=== PATIENT | male | born 1945 | race Caucasian/White ===

== ENCOUNTER 2021-12-05 02:06 | Observation (INO) ==
[2021-12-05] MEDS ORDERED: Albuterol/Ipratropium NEB.SOL (2.5/0.5 MG) 3 ML NEB.SOLN INH ONE (02:33)
[2021-12-05] MEDS ORDERED: Furosemide 40 mg/4 ml IV VIAL ONE (02:43)
[2021-12-05 02:45] LABS: ABS Eosinophils 0.1 10^3/ul (0-0.6); ABS Lymphocytes 0.8 10^3/ul (1.0-4.8); ABS Neutrophils 5.2 10^3/ul (1.5-7.7); Eosinophil % 1.5 %; Hematocrit 45 % (42-52); Hemoglobin 14.1 g/dL (14.0-18.0); Lymphocyte % 11.5 %; Mean Corpuscular HGB Conc 32 g/dL (31-36); Mean Corpuscular Hemoglobin 30 pg (27-31); Mean Corpuscular Volume 94 fL (80-94); Mean Platelet Volume 8.4 fL (7.4-10.4); Nucleated Red Blood Cells % 0.1; Platelet Count 190 10^3/uL (150-450); Red Blood Count 4.75 10^6 /uL (4.18-5.48); Red Cell Distribution Width 17 % (10-15); White Blood Count 7.2 10^3/uL (3.5-10.8)
[2021-12-05] MEDS ORDERED: Furosemide 40 mg/4 ml IV VIAL IV ONE ×2 (02:45→16:49)
[2021-12-05 02:50] LABS: INR 1.14 (0.89-1.11)
[2021-12-05] MEDS ORDERED: Morphine 4 MG/ML VIAL (1 ml) IV ONE (03:16)
[2021-12-05 03:22] LABS: Urine Appearance Clear; Urine Bilirubin Negative (Negative); Urine Blood Negative (Negative); Urine Color Yellow; Urine Glucose Negative (Negative); Urine Ketones Trace (Negative); Urine Nitrite Negative (Negative); Urine Protein 2+ (100 mg/dL) (Negative); Urine Specific Gravity 1.025 (1.005-1.030); Urine Urobilinogen 0.2 (Negative) (Negative)
[2021-12-05 03:24] LABS: Albumin 4.2 g/dL (3.2-5.2); Albumin/Globulin Ratio 1.3 (1-3); Calcium 9.5 mg/dL (8.6-10.3); Globulin 3.3 g/dL (2-4); Potassium 3.7 mmol/L (3.5-5.0); Total Bilirubin 1.3 mg/dL (0.2-1.0); Total Protein 7.5 g/dL (6.4-8.9); eGFR CKD-EPI 93.9 (>60)
[2021-12-05 03:32] LABS: Urine Bacteria Absent (Absent); Urine Red Blood Cell Absent (Absent); Urine Squamous Epithelial Cell Present (Absent); Urine White Blood Cell Trace(0-5/hpf) (Absent)
[2021-12-05 04:45] LABS: High Sensitivity Troponin 1 Hr 36 pg/mL (<20)
[2021-12-05] MEDS ORDERED: Iodixanol (CONTRAST) 320 MG/ML 100 ML SDV IV ONE (05:35)
[2021-12-05] MEDS ORDERED: Enoxaparin 40 MG/0.4 ML SYR SUBCUT SCH (06:00)
[2021-12-05] MEDS ORDERED: Dextrose 50% Syringe 50 ml 25 GM/50 ML SYRINGE IV PUSH PRN (06:52)
[2021-12-05] MEDS: Nystatin TOP POWDER 15 GM BTL TOPICAL SCH ×2 (09:08→21:08)
[2021-12-05] MEDS: Enoxaparin 100 MG/ML SYR SUBCUT SCH ×2 (09:08→21:08)
[2021-12-05] MEDS: Morphine ORAL.SOLN 10 mg 2 mg/ml UDC 5 ml (10 mg) PO PRN ×3 (10:31→23:13)
[2021-12-05] MEDS ORDERED: Perflutren Lipid Microsphere 3 ML VIAL ONE (15:52)
[2021-12-05] MEDS: Furosemide 40 mg/4 ml IV VIAL IV SLOW PU SCH (21:08)
[2021-12-06] MEDS: Morphine 10 MG/ML VIAL (1 ml) IV PRN ×4 (00:29→17:44)
[2021-12-06] MEDS: Morphine ORAL.SOLN 10 mg 2 mg/ml UDC 5 ml (10 mg) PO PRN ×3 (05:46→23:41)
[2021-12-06 06:20] LABS: Magnesium 1.2 mg/dL (1.9-2.7); Potassium 3.2 mmol/L (3.5-5.0)
[2021-12-06] MEDS ORDERED: Magnesium Sulf 4 GM/100 ML IV 4,000 MG/100 ML BAG IVPB ONE (07:51)
[2021-12-06] MEDS ORDERED: Potassium Chlor 20 meq TAB.ER PO ONE (07:53)
[2021-12-06] MEDS: Enoxaparin 100 MG/ML SYR SUBCUT SCH ×2 (09:39→19:52)
[2021-12-06] MEDS: Furosemide 40 mg/4 ml IV VIAL IV SLOW PU SCH ×2 (12:46→19:53)
[2021-12-06] MEDS: Nystatin TOP POWDER 15 GM BTL TOPICAL SCH (14:46)
[2021-12-07] MEDS: Nystatin TOP POWDER 15 GM BTL TOPICAL SCH ×3 (00:53→20:51)
[2021-12-07] MEDS: Morphine ORAL.SOLN 10 mg 2 mg/ml UDC 5 ml (10 mg) PO PRN ×3 (05:42→18:09)
[2021-12-07 06:26] LABS: Calcium 8.9 mg/dL (8.6-10.3); Magnesium 1.9 mg/dL (1.9-2.7); eGFR CKD-EPI 89.9 (>60)
[2021-12-07] MEDS: Enoxaparin 100 MG/ML SYR SUBCUT SCH (09:27)
[2021-12-08] MEDS: Morphine ORAL.SOLN 10 mg 2 mg/ml UDC 5 ml (10 mg) PO PRN ×2 (00:04→08:42)
[2021-12-08 07:25] LABS: Magnesium 1.7 mg/dL (1.9-2.7); eGFR CKD-EPI 87.4 (>60)
[2021-12-08 08:25] VITALS: BP 124/89
[2021-12-08] MEDS ORDERED: Magnesium Sulfate 2 gm BAG 2 GM/50 ML BAG IVPB ONE (08:37)
[2021-12-08] MEDS: Nystatin TOP POWDER 15 GM BTL TOPICAL SCH (08:45)
[2021-12-08 11:09] LABS: Lactate Dehydrogenase, BF 57 U/L
[2021-12-08 12:07] LABS: Glucose, BF 153 mg/dL
[2021-12-08 12:10] LABS: Fluid Type, Protein, Total PLEURAL; Total Protein, BF 2.1 g/dL
== END 2021-12-08 12:50 | disposition home or self-care (01) ==
LOC: EDHOLD 02:06 → ED 02:06 → SUATTDRO 06:50 → EDHOLD 13:04 → MEDTELE 13:26
PROVIDERS: ADMIT Hospitalist; ATTEND Internal Medicine

== ENCOUNTER 2022-01-06 02:28 | Observation (INO) ==
[2022-01-06 03:00] LABS: ABS Eosinophils 0.1 10^3/ul (0-0.6); ABS Lymphocytes 0.7 10^3/ul (1.0-4.8); ABS Monocytes 0.6 10^3/ul (0-0.8); ABS Neutrophils 7.1 10^3/ul (1.5-7.7); Eosinophil % 0.9 %; Hematocrit 43 % (42-52); Hemoglobin 13.9 g/dL (14.0-18.0); Lymphocyte % 8.6 %; Mean Corpuscular HGB Conc 33 g/dL (31-36); Mean Corpuscular Hemoglobin 31 pg (27-31); Mean Corpuscular Volume 94 fL (80-94); Mean Platelet Volume 8.7 fL (7.4-10.4); Platelet Count 142 10^3/uL (150-450); Red Blood Count 4.53 10^6 /uL (4.18-5.48); Red Cell Distribution Width 15 % (10-15); White Blood Count 8.5 10^3/uL (3.5-10.8)
[2022-01-06] MEDS ORDERED: Morphine 4 MG/ML VIAL (1 ml) IV ONE (03:16)
[2022-01-06 03:29] LABS: Albumin 4.2 g/dL (3.2-5.2); Albumin/Globulin Ratio 1.2 (1-3); Calcium 9.3 mg/dL (8.6-10.3); Globulin 3.5 g/dL (2-4); Potassium 3.3 mmol/L (3.5-5.0); Total Bilirubin 0.7 mg/dL (0.2-1.0); Total Protein 7.7 g/dL (6.4-8.9); eGFR CKD-EPI 73.5 (>60)
[2022-01-06] MEDS ORDERED: Potassium Chlor 20 meq TAB.ER PO ONE (05:16)
[2022-01-06 05:51] LABS: Magnesium 1.4 mg/dL (1.9-2.7)
[2022-01-06] MEDS ORDERED: Magnesium Sulfate IV 3 GM in NS 0.9% 100 ml BAG 100 ML IVPB ONE (06:07)
[2022-01-06] MEDS ORDERED: Dextrose 50% Syringe 50 ml 25 GM/50 ML SYRINGE IV PUSH PRN (06:26)
[2022-01-06 06:51] LABS: Urine Appearance Cloudy; Urine Bacteria Absent (Absent); Urine Bilirubin Negative (Negative); Urine Blood 2+ (Negative); Urine Color Yellow; Urine Glucose 3+(>=500 mg/dL) (Negative); Urine Ketones Negative (Negative); Urine Nitrite Negative (Negative); Urine Protein 1+(30 mg/dL) (Negative); Urine Red Blood Cell 3+(>10/hpf) (Absent); Urine Specific Gravity 1.024 (1.002-1.030); Urine Squamous Epithelial Cell Present (Absent); Urine Urobilinogen Negative (Negative); Urine White Blood Cell 3+(>20/hpf) (Absent)
[2022-01-06] MEDS: Morphine ORAL.SOLN 10 mg 2 mg/ml UDC 5 ml (10 mg) PO PRN ×3 (07:56→20:51)
[2022-01-06] MEDS: Meloxicam 7.5 mg TAB (NF) PO SCH ×2 (08:37→21:00)
[2022-01-07] MEDS: Morphine ORAL.SOLN 10 mg 2 mg/ml UDC 5 ml (10 mg) PO PRN ×3 (04:26→16:55)
[2022-01-07 06:16] LABS: ABS Lymphocytes 0.7 10^3/ul (1.0-4.8); ABS Monocytes 0.9 10^3/ul (0-0.8); ABS Neutrophils 9.6 10^3/ul (1.5-7.7); Eosinophil % 0.4 %; Hematocrit 37 % (42-52); Hemoglobin 11.9 g/dL (14.0-18.0); Lymphocyte % 6.1 %; Mean Corpuscular HGB Conc 33 g/dL (31-36); Mean Corpuscular Hemoglobin 31 pg (27-31); Mean Corpuscular Volume 95 fL (80-94); Mean Platelet Volume 8.8 fL (7.4-10.4); Nucleated Red Blood Cells % 0.1; Platelet Count 105 10^3/uL (150-450); Red Blood Count 3.88 10^6 /uL (4.18-5.48); Red Cell Distribution Width 15 % (10-15); White Blood Count 11.3 10^3/uL (3.5-10.8)
[2022-01-07 06:55] LABS: Albumin 3.3 g/dL (3.2-5.2); Albumin/Globulin Ratio 1.2 (1-3); Calcium 8.5 mg/dL (8.6-10.3); Globulin 2.7 g/dL (2-4); Magnesium 1.8 mg/dL (1.9-2.7); Potassium 3.8 mmol/L (3.5-5.0); Total Bilirubin 1.4 mg/dL (0.2-1.0); eGFR CKD-EPI 88.9 (>60)
[2022-01-07] MEDS ORDERED: Magnesium Sulfate 2 gm BAG 2 GM/50 ML BAG IVPB ONE (07:46)
[2022-01-07] MEDS: Meloxicam 7.5 mg TAB (NF) PO SCH ×2 (08:42→21:45)
[2022-01-07] MEDS ORDERED: cefTRIAXone 1 gm/50 mL D5W 1 GM/50 ML BAG IV SCH (20:00)
[2022-01-07 20:35] LABS: C Reactive Protein 158.65 mg/L (<8.01)
[2022-01-08] MEDS: Morphine ORAL.SOLN 10 mg 2 mg/ml UDC 5 ml (10 mg) PO PRN ×3 (00:26→14:02)
[2022-01-08 05:21] LABS: ABS Eosinophils 0.1 10^3/ul (0-0.6); ABS Lymphocytes 0.8 10^3/ul (1.0-4.8); ABS Neutrophils 7.1 10^3/ul (1.5-7.7); Eosinophil % 0.9 %; Hematocrit 37 % (42-52); Mean Corpuscular HGB Conc 33 g/dL (31-36); Mean Corpuscular Hemoglobin 31 pg (27-31); Mean Corpuscular Volume 94 fL (80-94); Mean Platelet Volume 9.2 fL (7.4-10.4); Platelet Count 100 10^3/uL (150-450); Red Blood Count 3.92 10^6 /uL (4.18-5.48); Red Cell Distribution Width 15 % (10-15)
[2022-01-08 05:22] LABS: Albumin 3.1 g/dL (3.2-5.2); Calcium 8.4 mg/dL (8.6-10.3); Magnesium 2.2 mg/dL (1.9-2.7); Potassium 3.7 mmol/L (3.5-5.0)
[2022-01-08 05:28] LABS: Albumin/Globulin Ratio 1.1 (1-3); Globulin 2.7 g/dL (2-4); Total Protein 5.8 g/dL (6.4-8.9); eGFR CKD-EPI 87.7 (>60)
[2022-01-08 08:26] LABS: C Reactive Protein 193.06 mg/L (<8.01)
[2022-01-08] MEDS: Meloxicam 7.5 mg TAB (NF) PO SCH (09:42)
[2022-01-08 13:06] VITALS: BP 113/82
== END 2022-01-08 13:45 ==
LOC: EDHOLD 02:28 → ED 02:28 → SUATTDRO 05:43 → MEDTELE 13:27
PROVIDERS: ADMIT Internal Medicine; ATTEND Hospitalist

== ENCOUNTER 2022-10-07 23:10 | Observation (INO) ==
[2022-10-07 23:51] LABS: Rapid Strep Molecular Negative (Negative)
[2022-10-08] MEDS ORDERED: Fluconazole 200 MG IVPREMIX 200 MG/100 ML BAG IVPB ONE ×2 (01:58→08:30)
[2022-10-08] MEDS ORDERED: Morphine 4 MG/ML VIAL (1 ml) IV ONE ×2 (02:36→07:14)
[2022-10-08 03:04] LABS: ABS Basophils 0.1 10^3/uL (0.0-0.1); ABS Eosinophils 0.1 10^3/uL (0.0-0.5); ABS Monocytes 1.3 10^3/uL (0.0-1.1); ABS Neutrophils 9.4 10^3/uL (1.5-7.6); ABS Nucleated RBC 0.01 10^3/ul; Eosinophil % 0.9 %; Hemoglobin 14.9 g/dL (13.2-16.3); Lymphocyte % 8.1 %; Mean Corpuscular Hemoglobin 32.7 pg (27-33); Mean Corpuscular Hgb Conc 33.9 g/dL (31-36); Mean Corpuscular Volume 96.4 fL (80-97); Mean Platelet Volume 8.2 fL (7.5-11.2); Nucleated Red Blood Cells % 0.1 /100 WBC (0.0-0.4); Platelet Count 145 10^3/uL (150-450); Red Blood Count 4.57 10^6/uL (4.06-5.63); Red Cell Distribution Width 13.4 % (12-17); White Blood Count 11.8 10^3/uL (3.6-10.2)
[2022-10-08 03:23] LABS: Albumin 3.8 g/dL (3.2-5.2); Albumin/Globulin Ratio 1.3 (1-3); Calcium 9.2 mg/dL (8.6-10.3); Creatinine, Serum 0.68 mg/dL (0.67-1.17); Globulin 2.9 g/dL (2-4); Potassium 3.3 mmol/L (3.5-5.0); Total Bilirubin 0.9 mg/dL (0.2-1.0); Total Protein 6.7 g/dL (6.4-8.9); eGFR CKD-EPI 94.6 (>60)
[2022-10-08] MEDS ORDERED: Iodixanol (CONTRAST) 320 MG/ML 100 ML SDV IV ONE (03:43)
[2022-10-08] MEDS ORDERED: Lactated Ringers 1000 ml BAG 1,000 ML IV ONE (07:14)
[2022-10-08] MEDS ORDERED: Al Hydrox/Mg Hydrox/Simet LIQ 30 ML UDC PO PRN (07:39)
[2022-10-08] MEDS ORDERED: Polyethylene Glycol 3350 17 GM PACKET PO PRN (07:39)
[2022-10-08] MEDS: KCL 20 MEQ/100 ML IVPREMIX 20 MEQ/100 ML BAG IV SCH ×2 (10:59→15:09)
[2022-10-08] MEDS ORDERED: Naloxone Nasal Spray 4 MG/0.1 ML NASAL.SPR INTRANASAL PRN (12:34)
[2022-10-08] MEDS: Morphine 10 MG/ML VIAL (1 ml) IV PRN ×2 (14:11→20:12)
[2022-10-08] MEDS ORDERED: Dextrose 50% Syringe 50 ml 25 GM/50 ML SYRINGE IV PUSH PRN (15:39)
[2022-10-08] MEDS ORDERED: Lidocaine 2% PF 5 ML VIAL ONE (16:23)
[2022-10-08] MEDS ORDERED: fentaNYL 100 mcg/2 ml 50 MCG/ML VIAL ONE (16:24)
[2022-10-08] MEDS ORDERED: HYDROmorphone 0.5 MG/0.5 ML SYRINGE ONE (17:15)
[2022-10-08] MEDS ORDERED: hydrALAZINE 20 mg/ml 1 ML Vial IV IV SLOW PU PRN (18:35)
[2022-10-08] MEDS: Nystatin SUSPENSION 100,000 UNITS/ML UDC PO SCH (20:17)
[2022-10-08] MEDS: Dexamethasone IV 4 MG/ML VIAL 1 ml VIAL IV SLOW PU SCH (22:28)
[2022-10-08] MEDS: Lactated Ringers 1000 ml BAG 1,000 ML IV SCH (22:31)
[2022-10-08] MEDS: Nystatin TOP POWDER 15 GM BTL TOPICAL SCH (22:55)
[2022-10-09] MEDS: Morphine 10 MG/ML VIAL (1 ml) IV PRN ×2 (02:01→08:08)
[2022-10-09] MEDS: Dexamethasone IV 4 MG/ML VIAL 1 ml VIAL IV SLOW PU SCH (05:10)
[2022-10-09] MEDS: Lactated Ringers 1000 ml BAG 1,000 ML IV SCH ×3 (05:16→20:52)
[2022-10-09] MEDS: Nystatin SUSPENSION 100,000 UNITS/ML UDC PO SCH ×4 (07:43→20:44)
[2022-10-09] MEDS: Nystatin TOP POWDER 15 GM BTL TOPICAL SCH ×2 (07:48→20:46)
[2022-10-09] MEDS ORDERED: Fluconazole 400 MG IVPREMIX 400 MG/200 ML BAG IVPB SCH (08:00)
[2022-10-09 10:37] LABS: Calcium 9.3 mg/dL (8.6-10.3); Creatinine, Serum 0.7 mg/dL (0.67-1.17); Magnesium 1.4 mg/dL (1.9-2.7); Potassium 3.9 mmol/L (3.5-5.0); eGFR CKD-EPI 93.7 (>60)
[2022-10-09] MEDS: Pantoprazole VIAL 40 MG VIAL IV SCH (11:17)
[2022-10-09] MEDS ORDERED: KCL 20 MEQ/100 ML IVPREMIX 20 MEQ/100 ML BAG IV ONE (14:19)
[2022-10-09] MEDS ORDERED: Magnesium Sulfate IV 3 GM in NS 0.9% 100 ml BAG 100 ML IVPB ONE (14:19)
[2022-10-09] MEDS: Morphine ORAL.SOLN 10 mg 2 mg/ml UDC 5 ml (10 mg) PO PRN ×2 (14:26→20:44)
[2022-10-09] MEDS ORDERED: Enoxaparin 40 MG/0.4 ML SYR SUBCUT SCH (15:00)
[2022-10-10] MEDS: Morphine ORAL.SOLN 10 mg 2 mg/ml UDC 5 ml (10 mg) PO PRN ×3 (02:52→15:25)
[2022-10-10 06:12] LABS: ABS Lymphocytes 0.8 10^3/uL (1.0-4.8); ABS Monocytes 1.1 10^3/uL (0.0-1.1); ABS Neutrophils 11.6 10^3/uL (1.5-7.6); ABS Nucleated RBC 0.01 10^3/ul; Eosinophil % 0.1 %; Hematocrit 46.4 % (38-53); Hemoglobin 15.7 g/dL (13.2-16.3); Lymphocyte % 5.8 %; Mean Corpuscular Hemoglobin 32.6 pg (27-33); Mean Corpuscular Hgb Conc 33.7 g/dL (31-36); Mean Corpuscular Volume 96.7 fL (80-97); Mean Platelet Volume 8.8 fL (7.5-11.2); Platelet Count 162 10^3/uL (150-450); Red Cell Distribution Width 13.5 % (12-17); White Blood Count 13.6 10^3/uL (3.6-10.2)
[2022-10-10 06:32] LABS: Calcium 9.2 mg/dL (8.6-10.3); Creatinine, Serum 0.67 mg/dL (0.67-1.17); Magnesium 2.1 mg/dL (1.9-2.7); Potassium 3.7 mmol/L (3.5-5.0)
[2022-10-10] MEDS ORDERED: Potassium Chloride LIQUID 20 MEQ/15 ML LIQUID PO ONE (07:36)
[2022-10-10] MEDS: Nystatin TOP POWDER 15 GM BTL TOPICAL SCH (07:53)
[2022-10-10] MEDS: Pantoprazole VIAL 40 MG VIAL IV SCH (07:54)
[2022-10-10] MEDS: Nystatin SUSPENSION 100,000 UNITS/ML UDC PO SCH ×2 (08:09→12:30)
[2022-10-10 14:20] VITALS: BP 112/68
== END 2022-10-10 15:25 | disposition home or self-care (01) ==
LOC: EDHOLD 23:10 → ED 23:10 → EDHOLD 10-08 15:39 → OR 10-08 16:06 → MED 10-08 16:06 → SUATTDRO 10-08 17:58
PROVIDERS: ADMIT Internal Medicine Gastroenterology; ATTEND Internal Medicine
PROC: O.GIEGD (2022-10-08 15:50)